=== PATIENT | male | born 2000 | race Two or more races ===

== ENCOUNTER 2021-04-29 04:27 | Emergency (ER) | payer SELFPAY ==
[~2021-04-29] VITALS: Ht 177.8 cm; Wt 100.0 kg
[2021-04-29 04:41] VITALS: BP 136/83
== END 2021-04-29 05:51 ==
LOC: ER 04:28
DX: Z00.00 Encounter for general adult medical examination without abnormal findings (principal); Z72.89 Other problems related to lifestyle
CPT/HCPCS: 99283